=== PATIENT | male | born 2000 | race African-American/Black ===

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

== ENCOUNTER 2018-06-21 16:22 | Emergency (ER) | payer OTHER ==
[2018-06-21 16:25] VITALS: BP 143/104
--- NOTE | 2018-06-21 16:36 | ER Report ---
History and Physical Time Seen By MD: 16:36 Hx. of Stated Complaint: PATIENT REPORTS GOING IN AND OUT OF HIS BODY. FEELS LIKE A PANIC ATTACK HE HAS HAD IN THE PAST BUT MUCH WORSE HPI/ROS Physics major at . Was told today that he could not solve his thesis with his working math equation. Had a panic attack which he has had previously. Had depression and anxiety in high school and was on medication. No medication now. Saw [facility] provider last year, but did not feel he needed it this year. Denies SI/HI. No longer drinks alcohol. Also stopped using marijuana abruptly. Reports previous suicide attempts, but does not feel SI or depressed currently. Remainder of the 14 system rev: Yes Allergies: Coded Allergies: Penicillins (Verified Allergy, Mild, 06/21/18) Smoking Status: Smoker: Status Unknown Hx Substance Use Disorder: Yes Hx Alcohol Use: Yes Constitutional Vital Sign - Last 24 Hours 06/21/18 16:25 Temp 97.8 Pulse 82 Resp 16 B/P (MAP) 143/104 Pulse Ox 91 O2 Delivery Room Air Physical Exam General Appearance: The patient is alert, has no immediate need for airway protection and no current signs of toxicity. Eyes: Pupils equal and round no injection. Respiratory: Chest is non tender, lungs are clear to auscultation. Cardiac: regular rate and rhythm Gastrointestinal: Abdomen is soft and non tender, no masses, bowel sounds normal. Skin: No rashes or lesions. DIFFERENTIAL DIAGNOSIS: After history and physical exam differential diagnosis was considered for depression including functional and major depression, situational depression, medication side effect, drugs and alcohol abuse. Medical Decision Making Data Points Result Diagram: 06/21/18 1720 06/21/18 1720 Laboratory Hematology Test 06/21/18 17:20 Red Blood Count 6.06 M/uL (4.00-5.60) Mean Corpuscular Volume 82.1 fL (80.0-96.0) Mean Corpuscular Hemoglobin 26.5 pg (26.0-33.0) Mean Corpuscular Hemoglobin Concent 32.3 g/dL (32.0-36.0) Red Cell Distribution Width 13.9 % (11.5-14.5) Mean Platelet Volume 7.9 fL (7.2-11.1) Neutrophils (%) (Auto) 77.3 % (39.4-72.5) Lymphocytes (%) (Auto) 13.9 % (17.6-49.6) Monocytes (%) (Auto) 8.0 % (4.1-12.4) Eosinophils (%) (Auto) 0.1 % (0.4-6.7) Basophils (%) (Auto) 0.7 % (0.3-1.4) Nucleated RBC Relative Count (auto) 0.0 /100WBC Neutrophils # (Auto) 7.3 K/uL (2.0-7.4) Lymphocytes # (Auto) 1.3 K/uL (1.3-3.6) Monocytes # (Auto) 0.8 K/uL (0.3-1.0) Eosinophils # (Auto) 0.0 K/uL (0.0-0.5) Basophils # (Auto) 0.1 K/uL (0.0-0.1) Nucleated RBC Absolute Count (auto) 0.00 K/uL Sodium Level 143 mmol/L (137-145) Potassium Level 4.1 mmol/L (3.5-5.0) Chloride Level 106 mmol/L (98-107) Carbon Dioxide Level 26 mmol/L (22-30) Blood Urea Nitrogen 14 mg/dl (9-21) Creatinine 1.20 mg/dl (0.66-1.25) Glomerular Filtration Rate Calc > 60.0 Random Glucose 98 mg/dl (75-110) Calcium Level 9.6 mg/dl (8.4-10.2) Magnesium Level 2.2 mg/dl (1.7-2.2) Total Bilirubin 1.2 mg/dl (0.2-1.3) Aspartate Amino Transf (AST/SGOT) 54 U/L (0-35) Alanine Aminotransferase (ALT/SGPT) 38 U/L (0-56) Alkaline Phosphatase 118 U/L (0-126) Total Protein 7.8 g/dl (6.3-8.2) Albumin 4.9 g/dl (3.5-5.0) Salicylates Level < 10 mg/L Salicylate Last Dose Date unk Acetaminophen Level < 10 ug/ml Serum Alcohol < 10 mg/dl Chemistry Test 06/21/18 17:20 White Blood Count 9.4 k/uL (4.5-11.0) Red Blood Count 6.06 M/uL (4.00-5.60) Hemoglobin 16.1 g/dL (14.0-18.0) Hematocrit 49.7 % (42.0-52.0) Mean Corpuscular Volume 82.1 fL (80.0-96.0) Mean Corpuscular Hemoglobin 26.5 pg (26.0-33.0) Mean Corpuscular Hemoglobin Concent 32.3 g/dL (32.0-36.0) Red Cell Distribution Width 13.9 % (11.5-14.5) Platelet Count 224 K/uL (150-450) Mean Platelet Volume 7.9 fL (7.2-11.1) Neutrophils (%) (Auto) 77.3 % (39.4-72.5) Lymphocytes (%) (Auto) 13.9 % (17.6-49.6) Monocytes (%) (Auto) 8.0 % (4.1-12.4) Eosinophils (%) (Auto) 0.1 % (0.4-6.7) Basophils (%) (Auto) 0.7 % (0.3-1.4) Nucleated RBC Relative Count (auto) 0.0 /100WBC Neutrophils # (Auto) 7.3 K/uL (2.0-7.4) Lymphocytes # (Auto) 1.3 K/uL (1.3-3.6) Monocytes # (Auto) 0.8 K/uL (0.3-1.0) Eosinophils # (Auto) 0.0 K/uL (0.0-0.5) Basophils # (Auto) 0.1 K/uL (0.0-0.1) Nucleated RBC Absolute Count (auto) 0.00 K/uL Glomerular Filtration Rate Calc > 60.0 Calcium Level 9.6 mg/dl (8.4-10.2) Magnesium Level 2.2 mg/dl (1.7-2.2) Total Bilirubin 1.2 mg/dl (0.2-1.3) Aspartate Amino Transf (AST/SGOT) 54 U/L (0-35) Alanine Aminotransferase (ALT/SGPT) 38 U/L (0-56) Alkaline Phosphatase 118 U/L (0-126) Total Protein 7.8 g/dl (6.3-8.2) Albumin 4.9 g/dl (3.5-5.0) Salicylates Level < 10 mg/L Salicylate Last Dose Date unk Acetaminophen Level < 10 ug/ml Serum Alcohol < 10 mg/dl Toxicology Test 06/21/18 17:20 Salicylates Level < 10 mg/L Salicylate Last Dose Date unk Acetaminophen Level < 10 ug/ml Serum Alcohol < 10 mg/dl ED Course/Re-evaluation ED Course Not intoxicated. Denies SI or HI. Not acutely psychotic or manic. Has a roommate at home he says he trusts and confide in. Seen by the [facility] who agrees that this patient is not acutely suicidal, and does not require involuntary admission to the hospital. Patient does not want to be admitted, and reports feeling less anxious. He plans to go to the library tonight and hanging out with his roommate. He was given multiple follow-up resources for [facility] to call on Sunday. Patient contracts for safety, and they will return to the emergency department if he feels unsafe. Decision to Disposition Date: Jun 21, 2018 Decision to Disposition Time: 18:22 Depart Departure Latest Vital Signs Vital Signs Date Time Temp Pulse Resp B/P (MAP) Pulse Ox O2 Delivery O2 Flow Rate FiO2 06/21/18 16:25 97.8 82 16 143/104 91 Room Air Impression: Primary Impression: Panic attack Condition: Improved Disposition: HOME OR SELF-CARE Patient Instructions: Panic Disorder (ED) CAMILA JETER MD Jun 21, 2018 16:36
[2018-06-21 17:29] LABS: PLATELET COUNT, AUTOMATED 224 K/uL (150-450)
== END 2018-06-21 18:33 | disposition home or self-care (01) ==
LOC: ER 16:41
DX: F41.0 Panic disorder [episodic paroxysmal anxiety] (principal)
CPT/HCPCS: 80320; 80329; 82040; 82247; 82310; 82374; 82435; 82565; 82947; 83735; 84075; 84132; 84155; 84295; 84443; 84450; 84460; 84520; 85025; 99283

== ENCOUNTER → 2018-06-21 | Outpatient (CLI) | payer OTHER | LOC: AMB 15:57 | PROVIDERS: ATTEND Nurse Practitioner | DX: R56.9 Unspecified convulsions (principal); F41.9 Anxiety disorder, unspecified | CPT/HCPCS: A0425; A0429 ==